=== PATIENT | male | born 1945 | race Caucasian/White ===

== ENCOUNTER 2019-01-10 20:54 | Emergency (ER) | payer OTHER ==
[~2019-01-10] VITALS: Ht 177.8 cm; Wt 99.0 kg
[2019-01-10 21:00] VITALS: Ht 177.8 cm; Wt 99.0 kg
[2019-01-10] MEDS ORDERED: SOD CHLORIDE 0.9% 1,000 ML IV STA (22:18)
[2019-01-10] MEDS ORDERED: GLUCAGON 1 MG INJ IV STA (22:18)
[2019-01-10] MEDS ORDERED: LIDOCAINE 2% VISC 15 ML CUP PO ONE (22:30)
--- NOTE | 2019-01-10 22:37 | ERD ---
ER Documentation Chief Complaint Chief Complaint Pt reports he has a pecan stuck in throat HPI This is a 73-year-old male who presents ED with complaints of foreign body in throat. Patient states that around 8:30 PM this evening he was eating pecans and and aspirated one of the pecans and he now has a FB sensation in throat. Patient states that he feels the vibrations when he breathes out.. He states that he has to breathe shallow oral cause excessive coughing. Denies chest pain, shortness breath, trouble breathing, fever, chilll. Patient is able to swallow water. ROS All systems reviewed and are negative except as per history of present illness. Allergies Allergies: Coded Allergies: No Known Allergy (Unverified , 01/10/19) PMhx/Soc Medical and Surgical Hx: pt denies Surgical Hx Hx Miscellaneous Medical Probl: Yes (BPH) Hx Alcohol Use: No Hx Substance Use: No Hx Tobacco Use: No Smoking Status: Never smoker FmHx Family History: No diabetes Physical Exam Vitals Vital Signs Date Temp Pulse Resp B/P (MAP) Pulse Ox O2 O2 Flow FiO2 Time Delivery Rate 01/11/19 98.3 67 19 148/65 96 Room Air 03:50 (92) 01/11/19 98.0 66 16 156/71 92 Room Air 02:33 (99) 01/10/19 98.3 77 20 195/83 95 21:00 (120) Physical Exam Physical Exam Vitals signs: Reviewed by me. General: Well developed, well nourished, in no acute distress. Patient is awake and alert. Head: Normocephalic, atraumatic. Eyes: Normal conjunctiva, Pupils PERRLA, EOM intact grossly ENT: Pharynx is clear, Moist mucous membranes, external ears, nose and mouth normal, no foreign body noted in the back of the throat, no tonsillar adenopathy, exudate or erythema, no kissing tonsils, no uvula deviation, Neck: Supple, no masses, lymphadenopathy or JVD Respiratory: Clear to auscultation bilaterally with no wheezing, rhonchi, rales, no distress Cardiovascular: RRR, no murmurs, rubs, or gallops Neurologic: Alert and oriented, moving all extremities, normal speech, no focal weakness, no cerebellar signs. Normal mentation Skin: warm and dry, No rash Psych: Normal mood Result Diagram: 01/11/1913101/11/19131 Results 24 hrs Laboratory Tests Test 01/11/19 01:32 White Blood Count 10.8 10^3/ul Red Blood Count 5.02 10^6/ul Hemoglobin 14.8 g/dl Hematocrit 44.6 % Mean Corpuscular Volume 88.8 fl Mean Corpuscular Hemoglobin 29.5 pg Mean Corpuscular Hemoglobin Concent 33.2 g/dl Red Cell Distribution Width 13.2 % Platelet Count 264 10^3/UL Mean Platelet Volume 8.8 fl Immature Granulocytes % 0.700 % Neutrophils % 65.1 % Lymphocytes % 23.5 % Monocytes % 8.2 % Eosinophils % 2.0 % Basophils % 0.5 % Nucleated Red Blood Cells % 0.0 /100WBC Immature Granulocytes # 0.070 10^3/ul Neutrophils # 7.0 10^3/ul Lymphocytes # 2.5 10^3/ul Monocytes # 0.9 10^3/ul Eosinophils # 0.2 10^3/ul Basophils # 0.1 10^3/ul Nucleated Red Blood Cells # 0.0 10^3/ul Prothrombin Time 12.4 Sec Prothrombin Time Ratio 1.0 INR International Normalized Ratio 0.91 Activated Partial Thromboplast Time 44.5 Sec Sodium Level 142 mmol/L Potassium Level 4.0 mmol/L Chloride Level 106 mmol/L Carbon Dioxide Level 26 mmol/L Anion Gap 10 Blood Urea Nitrogen 19 mg/dl Creatinine 0.91 mg/dl Est Glomerular Filtrat Rate mL/min mL/min Glucose Level 130 mg/dl Calcium Level 9.3 mg/dl Current Medications Medications Dose Sig/Gideon Start Time Status Last (Trade) Ordered Route PRN Stop Time Admin Dose Reason Admin Glucagon 1 mg ONCE STAT 01/10/19 DC (Glucagen) IV 22:18 01/10/19 22:26 Sodium 1,000 ml @ Q1H STAT 01/10/19 DC Chloride 1,000 mls/hr IV 22:18 01/10/19 22:26 Lidocaine 15 ml ONCE ONCE 01/10/19 DC (Xylocaine PO 22:30 (Viscous)) 01/10/19 22:30 Procedures/MDM EKG, MONITORS, & DIAGNOSTIC IMAGING: [place] [id number] Radiology Main Line: [phone] DIAGNOSTIC IMAGING REPORT Patient: JR HUMPHREYS : 1945 Age: 73 Sex: M MR #: [id number] DOS: 01/10/198 Ordering MD: ALLYSON DOWNYE PA-C Location: [facility] Room/Bed: PROCEDURE: CT soft tissue neck without contrast. CLINICAL INDICATION: Foreign body sensation in throat. TECHNIQUE: The study was performed utilizing a multi-slice multidetector CT scanner. Direct thin section helically acquired axial sections were obtained through the neck without contrast. Coronal and sagittal reformations were obtained. The images were reviewed on a PACS workstation. The total CTDIvol is 9 .57 mGy and the DLP is 171.07 mGy-cm. DICOM images are available. One or more of the following dose reduction techniques were utilized: 1.) Automated exposure control 2.) Adjustment of the mA +/- kV according to patient's size 3.) Use of iterative reconstruction technique. COMPARISON: No prior studies are available for comparison. FINDINGS: There is approximately 0.8 x 1.2 cm radiopaque foreign body at the left lateral tongue base. The nasopharynx, oropharynx, hypopharynx, and larynx are all normal in appearance. The thyroid gland is normal in size with no focal mass lesions seen. The submandibular and parotid glands are unremarkable and normal in appearance. No pathologically enlarged lymph nodes are detected. No osteolytic or blastic lesion is evident. IMPRESSION: The study is somewhat limited due to extensive denture artifacts. 1. Approximately 0.8 x 1.2 cm radiopaque foreign body at the left lateral tongue base. RPTAT: BB .Adrian Anthony MD, MD Date Time Electronically viewed and signed by .Adrian Anthony MD, MD on 01/11/2019 00:21 .O/ CC: ALLYSON DOWNEY PA-C [id number] LAB INTERPRETATION: Interpretation text CBC shows no evidence of hemorrhage or infection Chemistry shows no evidence of significant electrolyte abnormalities or renal insufficiency Coagulation study showed no concerning coagulopathy ER COURSE: The patient was stable throughout ED course. I kept the patient and/or family informed of laboratory and diagnostic imaging results throughout the emergency room course. The patient was promptly evaluated and a treatment plan was devised based on H&P and other data. This plan was discussed with the patient who agreed and had no further questions or concerns prior to discharge. MEDICAL DECISION MAKING: This is a 73-year-old male who presents ED with complaints of foreign body in throat. CT of the neck shows radiopaque foreign body at the left lateral tongue base. Patient is unable to cough and expel foreign body and is unable to swallow the foreign body. Discussed with the on-call ENT Dr. Shaikh at 12:54 and was advised to have patient admitted to have endoscopy in the hospital tomorrow. Discussed with overseeing physician Dr. Macias who will be facilitating admission of patient into hospital. pending transder to [facility] Disclaimer: Inadvertent spelling and grammatical errors are likely due to EHR/dictation software use and do not reflect on the overall quality of patient care. Also, please note that the electronic time recorded on this note does not necessarily reflect the actual time of the patient encounter. Departure Diagnosis: Primary Impression: Foreign body in throat Encounter type: initial encounter Qualified Codes: T17.208A - Unspecified foreign body in pharynx causing other injury, initial encounter Condition: Stable ALLYSON DOWNEY PA-C January 10, 2019 22:37
--- NOTE | 2019-01-11 03:30 | EN ---
Date/Time of Note Date/Time of Note DATE: 01/11/19 TIME: 03:24 ER Progress Note Consultation note Subjective: This patient was evaluated by myself in conjunction with the advanced practice provider. Briefly this is a 73-year-old male who is presenting with an impacted foreign body in the back of the throat. The patient was eating food with pecans and it when he had a coughing fit and actually aspirated 1 of the pecan nuts. The patient endorses a foreign body sensation. That said, the patient is able to breathe without difficulty. He does not endorse any swelling. He is able to swallow his saliva without difficulty. He does not have a hoarse voice. He does not have any stridor or wheezing. Patient was observed for at least 4 hours under my care. Family history: As indicated on the initial history and physical of this ER visit Objective: Vital signs reviewed Const: No apparent distress, well-developed, well-nourished Head: Normocephalic, Atraumatic Eyes: Normal Conjunctiva. ENT: Normal External Ears, Nose and Mouth. Neck: No meningismus. Resp: Symmetric chest wall valerio, no audible wheezes Cardio: Regular rate and rhythm Abd: Non distended Skin: No petechiae or rashes Back: Deferred Ext: No cyanosis, or edema Neur: Awake and alert, oriented 4. No facial droop. Normal strength and sensation. Psych: Normal mood and affect Assessment: Esophageal foreign body MDM The patient's presentation warrants further investigation. Previous medical rec ords, if available, were reviewed. LABS The patient's laboratory testing was obtained and reviewed. No emergent treatment was required unless described below. CBC: No E/o systemic infection or severe anemia or thrombocytopenia Chemistry: No E/o severe acidosis or alkalosis or renal failure or diabetic ketoacidosis PT/INR: No E/o significant coagulopathy IMAGING Imaging and Radiology interpretation reviewed. CT soft tissue neck FINDINGS: There is approximately 0.8 x 1.2 cm radiopaque foreign body at the left lateral tongue base. The nasopharynx, oropharynx, hypopharynx, and larynx are all normal in appearance. The thyroid gland is normal in size with no focal mass lesions seen. The submandibular and parotid glands are unremarkable and normal in appearance. No pathologically enlarged lymph nodes are detected. No osteolytic or blastic lesion is evident. IMPRESSION: The study is somewhat limited due to extensive denture artifacts. Approximately 0.8 x 1.2 cm radiopaque foreign body at the left lateral tongue base. Electronically viewed and signed by Adrian Anthony MD, on 01/11/2019 00:21 TREATMENT/DISPOSITION The patient has a foreign body at the left lateral tongue base. I am not able to visualize it on my oropharyngeal exam. ENT was consulted and recommended admission for endoscopy and foreign body removal. The patient is otherwise stable. TRANSFER At this time, I feel that the patient requires admission for further evaluation and management. The patient is capitated to [facility]. I do feel the patient is stable for transfer. The plan is to transfer the patient to a [facility] facility where he may be assessed by ENT. Disclaimer: Inadvertent spelling and grammatical errors are likely due to EHR/dictation software use and do not reflect on the overall quality of patient care. Note that the electronic time recorded on this note does not necessarily reflect the actual time of the patient encounter. FIONA PRESLEY MD January 11, 2019 03:30
[2019-01-11 06:07] VITALS: BP 134/63; PULSE 70; RESP 18
== END 2019-01-11 06:09 | disposition short-term general hospital (02) ==
LOC: FTE 20:54 → E/R 01-11 06:09
DX: T17.208A Unspecified foreign body in pharynx causing other injury, initial encounter (principal); X58.XXXA Exposure to other specified factors, initial encounter; Y92.9 Unspecified place or not applicable
CPT/HCPCS: 36415; 70490; 80048; 85025; 85610; 85730; 99284; J7030